=== PATIENT | female | born 1995 | race Caucasian/White ===

== ENCOUNTER 2016-07-22 04:16 | Inpatient (IN) ==
[2016-07-22 04:08] LABS: Basophils % 0.1 %; Eosinophils % 0.1 %; Hemoglobin 10.8 g/dL (11.5-15.4); Immature Granulocytes % 0.8 % (0-4); Lymphocytes # 2.9 K/mcL (0.6-4.6); Lymphocytes % 13.8 %; Mean Corpuscular HGB Conc 33.8 g/dL (31.6-35.5); Mean Corpuscular Hemoglobin 30.9 pg (28.0-33.3); Mean Corpuscular Volume 91.7 fL (83.0-100.0); Mean Platelet Volume 11.4 fL (9.4-12.4); Monocytes # 1.3 K/mcL (0.0-1.3); Monocytes % 6.2 %; Neutrophils # 16.4 K/mcL (1.6-8.9); Platelet Count 248 K/mcL (140-400); Red Blood Count 3.49 M/mcL (3.82-4.97); Red Cell Distribution Width 13.2 % (11.5-14.5)
[~2016-07-22 04:16] MED LIST: Famotidine 20 MG/2 ML VIAL IVP PRN; Metoclopramide 10 MG/2 ML VIAL IVP PRN; Naloxone 0.4 MG/ML INJ IVP PRN; Oxytocin 20 units/ LR 1000 mL 20 UNIT/1,000 ML BAG IVC ONE; Penicillin G Potassium 5,000,000 UNIT in D5% in Water (Mini-Bag+) 100 ML IVPB ONE; Ringers Solution, Lactated 1,000 ML IVC SCH; Ringers Solution, Lactated 1,000 ML ONE
[2016-07-22] MEDS ORDERED: Lidocaine 1% 20 ML MDV ONE ×2 (04:25→04:26)
--- NOTE | 2016-07-22 05:14 | OB/GYN Procedure Note ---
Delivery - Delivery Date: 07/22/16 Provider: Cordelia José Intrapartum events: precipitous labor- <3hr Delivery induction: none Delivery augmentation: rupture of membranes Delivery monitor: external FHT, external uterine Anesthesia: none Estimated Blood Loss: 150 - (s) A Delivery Date: 07/22/16 Infant Delivery Time: 04:27 Presentation: vertex Position: SURYA Route of delivery: Gender: Female Viability: Viable Pounds: 5 Ounces: 2 Weight Gram: 2.32 kg at 1 minute: 8 at 5 mins: 8 Shoulder Dystocia: not encountered Specimens collected: cord blood Placenta: spontaneous Cord: 3 umbilical vessels, other (short cord) - Repair Episiotomy: none (bilateral labial) Laceration Description: Labial - Complications Delivery complications: none - Disposition Mom disposition: stable in LDR disposition: stable in LDR - Comments Comments: 21 year-old presented at 34w1d in active labor at 9cm dilation. She progressed quickly to complete dilation and AROM was performed. She then underwent for viable female weighing 5lbs 2oz with apgars 8 and 8. After a 1-2 minute delay the cord was clamped and cut and the placenta delivered spontaneous and intact. A left labial laceration was repaired using 4-0 Vicryl and a right labial laceration was repaired using 3-0 Vicryl. Following delivery the was taken to the nursery for oxygen. Mother is stable in LDR.
--- NOTE | 2016-07-22 05:23 | OB/GYN History & Physical ---
Date of Encounter: 07/22/16 Time of Encounter: 05:19 Assessment and Plan (1) labor in third trimester with delivery Current visit: Yes Status: Acute Admitted for expectant management at 9cm. GBS ppx started. Pt progressed quickly to . Qualifiers: Fetus number: single or unspecified fetus Qualified Code(s): O60.14X0 - labor third trimester with delivery third trimester, not applicable or unspecified (2) 34 weeks gestation of Current visit: Yes Status: Acute (3) Opiate use Current visit: Yes Status: Acute History of Present Illness Chief complaint: contractions HPI: Ms. Ramirez is a 21 year old female at 34w1d presenting for abdominal pain. She reports having some mild discomfort that started in the afternoon after her appointment yesterday. She states the pain got worse at 11pm. Upon arrival she denies LOF. She does admit to some blood tinged mucus discharge. This has been complicated by subutex use and a placental mass on ultrasound. Blood type O negative. Serologies negative. GBS unknown. Past Med Surg Social Fam HX - Past Medical History Medical history: no medical history Psychiatric history: no psych history - Past Surgical History Surgical History: non-contributory - Social History Smoking Status: Current every day smoker Packs per day: 1/2 Smokeless Tobacco Status: No Alcohol use: none Drug use: none - Family History Mother Age: 46 Living Status: Still Living Hx Family Cardiac Disorders: No Hx Family Respiratory Disorders: No Hx Family Cancer: No Hx Family GI Disorders: No Hx Family Genitourinary Disorders: No Hx Family Endocrine Disorder: No Hx Family Musculoskeletal Disorders: No Hx Family Neuromuscular Disorders: No Hx Family Neurologic Disorders: No Hx Family HEENT Disorders: No Hx Family Autoimmune Disorders: No Hx Family Reproductive Disorders: No Hx Family Psychosocial Disorders: No Hx Family Medical Disorders: No Obstetrical History - Pregnancies : 1 Medications and Allergies Vit No.124/Iron/FA [ Vitamin Tablet] 1 each PO DAILY #90 tablet 01/01/16 [Rx] Ferrous Sulfate 324 mg PO DAILY 07/22/16 [History] Subutex 8 mg PO BID 07/22/16 [History] Allergies No Known Allergies Allergy (Verified 01/07/15 14:47) Review of System OB All systems PM: reviewed and no additional remarkable complaints except as stated Exam - Vital Signs Vital signs: Initial Vital Signs Temp Pulse Resp BP 97.0 F L 84 16 112/66 07/22/16 03:53 07/22/16 03:53 07/22/16 03:53 07/22/16 03:53 - Constitutional Constitutional: well developed, severe distress - HEENT HEENT: Mucus Membranes Moist - Lungs Respiratory exam: CTAB - Cardiovascular Cardiovascular exam: RRR, +S1, +S2 - Abdomen Abdomen: Present: gravid - Extremities Extremities exam: normal inspection - Vulva Vulva: bilateral: normal - Cervix Dilation: 10 Effacement: 100 Station: +1 - Anus/Rectum Anus/Rectum: Present: normal perianal skin Results Result Diagrams: 07/22/16 03:56 Abnormal lab results WBC 20.8 K/mcL (4.3-11.1) H 07/22/16 03:56 RBC 3.49 M/mcL (3.82-4.97) L 07/22/16 03:56 Hgb 10.8 g/dL (11.5-15.4) L 07/22/16 03:56 Hct 32.0 % (35.3-44.9) L 07/22/16 03:56 Neutrophils # 16.4 K/mcL (1.6-8.9) H 07/22/16 03:56 All other labs normal. - VTE Reasons for not Prescribing Prophylaxis: Treatment not Indicated - Low risk for VTE
[2016-07-22] MEDS ORDERED: Oxytocin 20 units/ LR 1000 mL 20 UNIT/1,000 ML BAG IVC ONE ×2 (06:06→07:43)
[2016-07-22] MEDS ORDERED: Measles/Mumps/Rubella Vacc 0.5 ML VIAL SQ PRN (07:43)
[2016-07-22] MEDS ORDERED: Acetaminophen 325 MG TABLET PO PRN (07:43)
[2016-07-22] MEDS ORDERED: Oxytocin 20 units/ LR 1000 mL 20 UNIT/1,000 ML BAG IV SCH (07:43)
[2016-07-22] MEDS ORDERED: Benzocaine/Menthol 56 GM AEROSOL SPRAY TP PRN (07:43)
[2016-07-22] MEDS ORDERED: Rho Immune Globulin 1,500 UNIT SYRINGE IM PRN (07:43)
[2016-07-22] MEDS ORDERED: Penicillin G Potassium 2,500,000 UNIT in D5% in Water 100 ML IVPB SCH (08:00)
[2016-07-22] MEDS: Ibuprofen 600 MG TABLET PO PRN (08:32)
[2016-07-22] MEDS: Prenatal Vit/FA 1 EACH TABLET PO SCH (08:32)
[2016-07-22] MEDS: *HR* Buprenorphine HCl 8 MG TAB.SUBL SL SCH ×2 (08:32→19:46)
--- NOTE | 2016-07-23 07:36 | Discharge Summary ---
Date of Encounter: 07/23/16 Time of Encounter: 07:36 - Discharge Diagnosis (1) Vaginal delivery Priority: Primary Status: Acute Comments: Pt states feel good, up and ambulating frequently around unit. States pain is well managed Meeting all postparum milestones. - Discharge Medications Prescriptions: Ibuprofen [Motrin] 600 mg PO Q6HR PRN #60 tablet PRN Reason: Cramping Docusate [Colace] 100 mg PO BID #60 capsule Home Medications: Vit No.124/Iron/FA [ Vitamin Tablet] 1 each PO DAILY #90 tablet 01/01/16 [Rx] Subutex 8 mg PO BID 07/22/16 [History] Acetaminophen [Tylenol] 650 mg PO Q6HR PRN #0 tablet 07/23/16 [Rx] Benzocaine/Menthol [place] [Dermoplast [place]] 1 appl TP QID PRN #0 aerosol [Rx] Docusate [Colace] 100 mg PO BID #60 capsule 07/23/16 [Rx] Ibuprofen [Motrin] 600 mg PO Q6HR PRN #60 tablet 07/23/16 [Rx] Allergies/Adverse Reactions: Allergies No Known Allergies Allergy (Verified 01/07/15 14:47) Data Procedures and tests throughout hospitalization: Laboratory Tests 07/22/16 07/22/16 03:56 05:10 WBC 20.8 H RBC 3.49 L Hgb 10.8 L Hct 32.0 L MCV 91.7 MCH 30.9 MCHC 33.8 RDW 13.2 Plt Count 248 MPV 11.4 Immature Gran % 0.8 Seg Neutrophils % 79.0 Lymphocytes % 13.8 Monocytes % 6.2 Eosinophils % 0.1 Basophils % 0.1 Neutrophils # 16.4 H Lymphocytes # 2.9 Monocytes # 1.3 Eosinophils # 0.0 Basophils # 0.0 Baby's Blood Type O RH NEGATIVE Mother's Blood Type O RH NEGATIVE Rhogam Indicated NO Labs on day of discharge: Labs from last 24 hours 07/22/16 05:10 Baby's Blood Type O RH NEGATIVE Mother's Blood Type O RH NEGATIVE Rhogam Indicated NO Date of admission: 07/22/16 04:16 Primary care physician: Felton Garrett Consults: 07/22/16 07:43 Consult to [employer]pler Pickup [CONS] Routine Comment: Vaginal delivery, consult needed Consult to [employer] [CONS] Routine Reason for SW Consult: subutex Discharging clinician: Alisa Gonzalez Anticipated date of discharge: 07/23/16 - Patient Status Disposition: Home, Self-Care Condition: Good Functional capacity at discharge: independent ambulation Overall status at discharge: patient is back to baseline - Discharge Instructions Follow Up With: Cordelia José, PRASANTH [Non-Partnered Physician] - (August 20, 2016 @ 9:15 am) - Diet and Activity Diet: regular diet Hospital Course Reason for admission: active labor Delivery: Episiotomy: none (bilateral labial) Laceration: none Other procedures: none complications: none Discharge diagnosis: delivery baby: female Hospital course: Delivery - Delivery Date: 07/22/16 Provider: Cordelia José Intrapartum events: precipitous labor- <3hr Delivery induction: none Delivery augmentation: rupture of membranes Delivery monitor: external FHT, external uterine Anesthesia: none Estimated Blood Loss: 150 - Infant (s) Infant A Infant Delivery Date: 07/22/16 Delivery Time: 04:27 Presentation: vertex Position: SURYA Route of delivery: Gender: Female Viability: Viable Pounds: 5 Ounces: 2 Weight Gram: 2.32 kg at 1 minute: 8 at 5 mins: 8 Shoulder Dystocia: not encountered Specimens collected: cord blood Placenta: spontaneous Cord: 3 umbilical vessels, other (short cord) - Repair Episiotomy: none (bilateral labial) Laceration Description: Labial - Complications Delivery complications: none - Disposition Mom disposition:Stable in PP. Appropriate for discharge Time Attestation: Total time spent providing and/or coordinating discharge services: Time Spent: Less than 30 minutes Exam - Constitutional Vitals: Temp Pulse Resp BP Pulse Ox 98.4 F 53 14 101/55 96 07/23/16 04:40 07/23/16 04:40 07/23/16 04:40 07/23/16 04:40 07/23/16 04:40 General appearance IM: A&O X 3 - Respiratory Respiratory exam: Present: CTAB - Cardiovascular Cardiovascular exam IM: Present: RRR, +S1, +S2 - GI/Abdominal GI/Abdominal exam IM: normal bowel sounds, soft - Rectal Rectal exam: deferred - Uterine Tone: Firm Uterus Position: At Umbilicus - Extremities Exam Extremities exam IM: Present: normal inspection - Neurological Exam Neurological exam: normal gait, oriented X3 - Psychiatric Additional comments: Reports good mood.
[2016-07-23] MEDS: Ibuprofen 600 MG TABLET PO PRN (09:18)
[2016-07-23] MEDS: Prenatal Vit/FA 1 EACH TABLET PO SCH (09:18)
[2016-07-23] MEDS: *HR* Buprenorphine HCl 8 MG TAB.SUBL SL SCH (09:18)
[2016-07-23 09:41] VITALS: BP 111/68
== END 2016-07-23 11:09 | disposition home or self-care (01) | DRG 560 ==
LOC: 1NENULAB → 1NENUOBS 07:30
PROVIDERS: ADMIT Obstetrics & Gynecology; ATTEND Obstetrics & Gynecology

== ENCOUNTER → 2019-10-04 17:52 | Observation (INO) ==
[2019-10-04 16:45] LABS: Bilirubin,Urine Small (Negative); Blood,Urine Negative (Negative); Clarity,Urine Cloudy (Clear); Color,Urine Yellow (Yellow); Glucose,Urine (UA) Normal (Normal); Ketones,Urine Negative (Negative); Leukocyte Esterase,Urine Negative (Negative); Nitrite,Urine Negative (Negative); Protein,Urine 30 mg/dL (Neg-Trace); Specific Gravity,Urine 1.027 (1.010-1.025); Urobilinogen,Urine Normal (Normal)
[2019-10-04 16:47] LABS: Bacteria,Urine None Seen per hpf (None-Few); Hyaline Casts,Urine None Seen per lpf (None-Few); Squamous Epithelial Cell,Urine Many per lpf (None-Few); WBC,Urine 0-3 per hpf (0-3)
[2019-10-04 17:20] LABS: Amphetamine Screen,Urine Negative ng/mL (Cutoff=1000); Barbiturate Screen,Urine Negative ng/mL (Cutoff=200); Benzodiazepines Screen,Urine Negative ng/mL (Cutoff=200); Cannabinoid Screen,Urine Positive ng/mL (Cutoff = 50); Cocaine Screen,Urine Negative ng/mL (Cutoff= 300); Opiate Screen,Urine Negative ng/mL (Cutoff=300); Phencyclidine Screen,Urine Negative ng/mL (Cutoff=25)
[~2019-10-04 17:52] MED LIST changes: +*HR* Buprenorphine HCl 8 MG TAB.SUBL SL SCH; +EPHEDrine 50 MG/ML VIAL IVP PRN; +Epidural Premix (fent/bupiv) 110 ML EP SCH; -Famotidine 20 MG/2 ML VIAL IVP PRN; -Metoclopramide 10 MG/2 ML VIAL IVP PRN; -Naloxone 0.4 MG/ML INJ IVP PRN; -Oxytocin 20 units/ LR 1000 mL 20 UNIT/1,000 ML BAG IVC ONE; -Penicillin G Potassium 5,000,000 UNIT in D5% in Water (Mini-Bag+) 100 ML IVPB ONE; -Ringers Solution, Lactated 1,000 ML IVC SCH; -Ringers Solution, Lactated 1,000 ML ONE
[2019-10-04 18:14] LABS: Chlamydia Trachomatis DNA Ur DETECTED (Not Detect)
== END | disposition home or self-care (01) ==
LOC: 1NENULAB
PROVIDERS: ADMIT Registered Nurse; ATTEND Registered Nurse

== ENCOUNTER 2019-10-12 15:41 | Inpatient (IN) ==
[2019-10-12] MEDS ORDERED: Famotidine 20 MG/2 ML VIAL IVP PRN (16:00)
[2019-10-12] MEDS ORDERED: *HR* FentaNYL (PF) 100 MCG/2 ML VIAL IVP PRN (16:00)
[2019-10-12] MEDS ORDERED: Lidocaine 1% 20 ML MDV INFILT PRN (16:00)
[2019-10-12] MEDS ORDERED: Naloxone 0.4 MG/ML INJ IVP PRN (16:00)
[2019-10-12] MEDS ORDERED: Ondansetron 4 MG/2 ML VIAL IVP PRN (16:00)
[2019-10-12] MEDS ORDERED: Metoclopramide 10 MG/2 ML VIAL IVP PRN (16:00)
[2019-10-12 16:26] LABS: Amphetamine Screen,Urine Negative ng/mL (Cutoff=1000); Barbiturate Screen,Urine Negative ng/mL (Cutoff=200); Benzodiazepines Screen,Urine Negative ng/mL (Cutoff=200); Cannabinoid Screen,Urine Positive ng/mL (Cutoff = 50); Cocaine Screen,Urine Negative ng/mL (Cutoff= 300); Opiate Screen,Urine Negative ng/mL (Cutoff=300); Phencyclidine Screen,Urine Negative ng/mL (Cutoff=25)
[2019-10-12 16:27] LABS: Basophils % 0.1 %; Eosinophils # 0.1 K/mcL (0.0-0.6); Eosinophils % 0.6 %; Hematocrit 30.4 % (35.3-44.9); Immature Granulocytes % 0.8 % (0-4); Mean Corpuscular HGB Conc 32.9 g/dL (31.6-35.5); Mean Corpuscular Hemoglobin 29.3 pg (28.0-33.3); Mean Corpuscular Volume 89.1 fL (83.0-100.0); Mean Platelet Volume 12.2 fL (9.4-12.4); Monocytes # 0.8 K/mcL (0.0-1.3); Platelet Count 258 K/mcL (140-400); Red Blood Count 3.41 M/mcL (3.82-4.97); Red Cell Distribution Width 16.5 % (11.5-14.5); Segmented Neutrophils % 78.5 %
[2019-10-12] MEDS: Ringers Solution, Lactated 1,000 ML IVC SCH ×2 (16:34→17:42)
[2019-10-12] MEDS ORDERED: EPHEDrine 50 MG/ML VIAL IVP PRN (16:59)
[2019-10-12] MEDS ORDERED: Bupivacaine-MPF 0.25% 10 ML VIAL EP ONE (16:59)
[2019-10-12] MEDS ORDERED: *HR* FentaNYL (PF) 100 MCG/2 ML VIAL EP ONE (16:59)
[2019-10-12] MEDS ORDERED: Epidural Premix (fent/bupiv) 110 ML EP SCH (17:00)
[2019-10-12] MEDS ORDERED: *HR* FentaNYL (PF) 100 MCG/2 ML VIAL ONE (17:12)
[2019-10-12] MEDS ORDERED: Bupivacaine-MPF 0.25% 10 ML VIAL ONE (17:12)
[2019-10-12] MEDS ORDERED: Oxytocin 20 units/ LR 1000 mL 20 UNIT/1,000 ML BAG IVC ONE (20:41)
[2019-10-12] MEDS ORDERED: Benzocaine/Menthol 56 GM AEROSOL SPRAY TP PRN ×2 (21:03→22:33)
[2019-10-12] MEDS ORDERED: Lanolin 7 G OINT...G. TP PRN ×2 (21:03→22:33)
[2019-10-12] MEDS ORDERED: Rho Immune Globulin 1,500 UNIT SYRINGE IM PRN ×2 (21:03→22:33)
[2019-10-12] MEDS ORDERED: Ibuprofen 600 MG TABLET PO PRN (21:03)
[2019-10-12] MEDS ORDERED: Acetaminophen 325 MG TABLET PO PRN ×2 (21:03→22:33)
[2019-10-12] MEDS ORDERED: Oxytocin 20 units/ LR 1000 mL 20 UNIT/1,000 ML BAG IVC SCH ×2 (21:15→22:33)
[2019-10-12] MEDS: Ibuprofen 600 MG TABLET PO PRN (22:45)
[2019-10-13] MEDS: Ibuprofen 600 MG TABLET PO PRN ×3 (04:45→18:51)
[2019-10-13 05:20] LABS: Basophils % 0.1 %; Eosinophils # 0.1 K/mcL (0.0-0.6); Eosinophils % 0.3 %; Hematocrit 26.8 % (35.3-44.9); Hemoglobin 8.7 g/dL (11.5-15.4); Immature Granulocytes % 0.6 % (0-4); Mean Corpuscular HGB Conc 32.5 g/dL (31.6-35.5); Mean Corpuscular Hemoglobin 29.5 pg (28.0-33.3); Mean Corpuscular Volume 90.8 fL (83.0-100.0); Mean Platelet Volume 12.7 fL (9.4-12.4); Monocytes # 1.2 K/mcL (0.0-1.3); Monocytes % 7.6 %; Neutrophils # 12.1 K/mcL (1.6-8.9); Platelet Count 220 K/mcL (140-400); Red Blood Count 2.95 M/mcL (3.82-4.97); Red Cell Distribution Width 16.4 % (11.5-14.5); Segmented Neutrophils % 78.4 %; White Blood Count 15.4 K/mcL (4.3-11.1)
[2019-10-13] MEDS: Prenatal Vit/FA 1 EACH TABLET PO SCH (08:43)
[2019-10-13] MEDS: *HR* Buprenorphine HCl 8 MG TAB.SUBL SL SCH ×2 (08:44→20:48)
[2019-10-13] MEDS ORDERED: Prenatal Vit/FA 1 EACH TABLET PO SCH (09:00)
[2019-10-13 17:29] LABS: Chlamydia Trachomatis DNA Ur DETECTED (Not Detect)
[2019-10-13] MEDS ORDERED: Azithromycin 250 MG TABLET PO ONE (17:53)
[2019-10-14] MEDS: Ibuprofen 600 MG TABLET PO PRN (00:31)
[2019-10-14] MEDS: *HR* Buprenorphine HCl 8 MG TAB.SUBL SL SCH (08:44)
[2019-10-14] MEDS: Prenatal Vit/FA 1 EACH TABLET PO SCH (08:45)
[2019-10-14 08:50] VITALS: BP 106/63
== END 2019-10-14 13:00 | disposition home or self-care (01) | DRG 560 ==
LOC: 1NENULAB → 1NENUOBS 22:32
PROVIDERS: ADMIT Advanced Practice Midwife; ATTEND Advanced Practice Midwife

== ENCOUNTER 2021-04-03 10:13 | Inpatient (IN) ==
[~2021-04-03 10:13] MED LIST changes: -EPHEDrine 50 MG/ML VIAL IVP PRN; -Epidural Premix (fent/bupiv) 110 ML EP SCH
[2021-04-03] MEDS ORDERED: Naloxone 0.4 MG/ML INJ IVP PRN (10:21)
[2021-04-03] MEDS ORDERED: Oxytocin 20 units/ LR 1000 mL 20 UNIT/1,000 ML BAG IVC ONE ×2 (10:21→11:55)
[2021-04-03] MEDS ORDERED: *HR* FentaNYL (PF) 100 MCG/2 ML VIAL IVP ONE (10:29)
[2021-04-03] MEDS ORDERED: Ringers Solution, Lactated 1,000 ML IVC SCH (10:30)
[2021-04-03 11:11] LABS: Basophils # 0.1 K/mcL (0.0-0.2); Basophils % 0.4 %; Eosinophils # 0.6 K/mcL (0.0-0.6); Eosinophils % 3.5 %; Hematocrit 32.2 % (35.3-44.9); Hemoglobin 10.4 g/dL (11.5-15.4); Lymphocytes # 2.8 K/mcL (0.6-4.6); Mean Corpuscular HGB Conc 32.3 g/dL (31.6-35.5); Mean Corpuscular Hemoglobin 29.9 pg (28.0-33.3); Mean Corpuscular Volume 92.5 fL (83.0-100.0); Mean Platelet Volume 12.1 fL (9.4-12.4); Monocytes # 1.1 K/mcL (0.0-1.3); Monocytes % 6.9 %; Neutrophils # 11.3 K/mcL (1.6-8.9); Platelet Count 241 K/mcL (140-400); Red Blood Count 3.48 M/mcL (3.82-4.97); Red Cell Distribution Width 15.4 % (11.5-14.5); Segmented Neutrophils % 70.2 %; White Blood Count 16.1 K/mcL (4.3-11.1)
[2021-04-03 11:52] LABS: Amphetamine Screen,Urine Positive ng/mL (Cutoff=1000); Barbiturate Screen,Urine Negative ng/mL (Cutoff=200); Benzodiazepines Screen,Urine Negative ng/mL (Cutoff=200); Cannabinoid Screen,Urine Positive ng/mL (Cutoff = 50); Cocaine Screen,Urine Negative ng/mL (Cutoff= 300); Opiate Screen,Urine Negative ng/mL (Cutoff=300); Phencyclidine Screen,Urine Negative ng/mL (Cutoff=25)
[2021-04-03] MEDS ORDERED: Ondansetron ODT 4 MG TAB.RAPDIS SL PRN (12:34)
[2021-04-03] MEDS ORDERED: Benzocaine/Menthol 56 GM AEROSOL SPRAY TP PRN (12:34)
[2021-04-03] MEDS ORDERED: Lanolin 7 G OINT...G. TP PRN (12:34)
[2021-04-03] MEDS ORDERED: Rho Immune Globulin 1,500 UNIT SYRINGE IM PRN (12:34)
[2021-04-03] MEDS ORDERED: Oxytocin 20 units/ LR 1000 mL 20 UNIT/1,000 ML BAG IVC SCH (12:34)
[2021-04-03] MEDS ORDERED: Measles/Mumps/Rubella Vacc 0.5 ML VIAL SQ PRN (12:34)
[2021-04-03] MEDS: Acetaminophen 325 MG TABLET PO SCH ×2 (13:04→20:39)
[2021-04-03] MEDS: Ibuprofen 600 MG TABLET PO SCH ×2 (13:04→20:39)
[2021-04-03] MEDS ORDERED: *HR* Buprenorphine HCl 8 MG TAB.SUBL SL SCH (17:30)
[2021-04-03] MEDS: *HR* Buprenorphine HCl 8 MG TAB.SUBL SL SCH (18:45)
[2021-04-03] MEDS: *HR* Buprenorphine HCl 2 MG SUBLINGUAL TABLET SL SCH (18:45)
[2021-04-04] MEDS: Acetaminophen 325 MG TABLET PO SCH ×2 (02:38→08:46)
[2021-04-04] MEDS: Ibuprofen 600 MG TABLET PO SCH ×2 (02:39→08:45)
[2021-04-04 02:55] VITALS: O2SAT 98
[2021-04-04 03:05] LABS: Basophils % 0.3 %; Eosinophils # 0.3 K/mcL (0.0-0.6); Eosinophils % 1.9 %; Hematocrit 24.8 % (35.3-44.9); Immature Granulocytes % 1.8 % (0-4); Lymphocytes # 3.4 K/mcL (0.6-4.6); Mean Corpuscular HGB Conc 32.7 g/dL (31.6-35.5); Mean Corpuscular Hemoglobin 29.9 pg (28.0-33.3); Mean Corpuscular Volume 91.5 fL (83.0-100.0); Mean Platelet Volume 11.7 fL (9.4-12.4); Monocytes # 1.1 K/mcL (0.0-1.3); Monocytes % 7.3 %; Neutrophils # 10.4 K/mcL (1.6-8.9); Platelet Count 245 K/mcL (140-400); Red Blood Count 2.71 M/mcL (3.82-4.97); Red Cell Distribution Width 15.3 % (11.5-14.5); Segmented Neutrophils % 66.7 %; White Blood Count 15.5 K/mcL (4.3-11.1)
[2021-04-04 03:09] LABS: Hemoglobin 8.1 g/dL (11.5-15.4)
[2021-04-04 07:51] VITALS: BP 104/60; PULSE 57; TEMP 98.5
[2021-04-04] MEDS: *HR* Buprenorphine HCl 8 MG TAB.SUBL SL SCH (08:46)
[2021-04-04] MEDS: *HR* Buprenorphine HCl 2 MG SUBLINGUAL TABLET SL SCH (08:47)
[2021-04-04] MEDS ORDERED: Prenatal Vit/FA 1 EACH TABLET PO SCH (09:00)
== END 2021-04-04 13:30 | disposition home or self-care (01) | DRG 561 ==
LOC: 1NENULAB 10:13 → 1NENUOBS 14:24
PROVIDERS: ADMIT Advanced Practice Midwife; ATTEND Advanced Practice Midwife